=== PATIENT | female | born 1990 | race Caucasian/White ===

== ENCOUNTER → 2019-09-09 | Outpatient (CLI) | payer OTHER ==
[~2019-09-09] MED LIST: METHACHOLINE KIT (J7674) INH ONE
--- NOTE | 2019-09-09 08:14 | PFTRPT ---
Site: [facility], [address] [place], [address] ID: [id number] Name: RAMÓN GUNTER Visit Date: 09/09/2019 Second ID: [id number] Referring Doctor: Deon Menchaca D.O. Reviewing Doctor: Sukumar Herndon MD Sales Facilitator: Elizabeth NARVAEZ RRT Age: 28 : 1990 Sex: Female Race: Height: 64.00 Inches Weight: 185.00 Lbs BSA: 1.89 Order IDs: [id number] Requested Test(s): <RESP-PFT.METH CHAL> Diagnosis: R06.02 of albuterol for post bronchodilator. Review Status: Not Reviewed Pre-Bronch Post-Bronch Pred Actual %Pred Actual %Chng SPIROMETRY FVC (L) 3.78 3.99 105 3.78 -5 FEV1 (L) 3.21 3.35 104 3.20 -4 FEV1/FVC (%) 85 84 98 85 1 FEF 25% (L/sec) 5.73 7.30 127 6.99 -4 FEF 50% (L/sec) 4.54 4.48 98 3.75 -16 FEF 75% (L/sec) 1.93 1.64 84 1.20 -26 FEF 25-75% (L/sec) 3.50 3.66 104 3.09 -15 FEF Max (L/sec) 6.99 7.54 107 7.00 -7 FIVC (L) 3.00 3.65 21 FIF 50% (L/sec) 4.23 2.52 59 3.89 54 FIF Max (L/sec) 2.57 3.90 51 Expiratory Time (sec) 6.52 5.84 -10 Back Extrap Vol (L) 0.15 0.13 -14 Time To FEFmax (sec) 0.108 0.138 27
== END ==
LOC: M CARPUL 07:10
PROVIDERS: ATTEND Internal Medicine Pulmonary Disease
DX: R06.02 Shortness of breath (principal)
CPT/HCPCS: 94070; J7674

== ENCOUNTER → 2021-05-18 | Outpatient (CLI) | payer OTHER | LOC: M SLEEP HO 11:09 | PROVIDERS: ATTEND Physician Assistant | DX: G47.10 Hypersomnia, unspecified (principal) ==

== ENCOUNTER 2022-02-14 07:46 | Observation (INO) | payer OTHER ==
[~2022-02-14] VITALS: Ht 162.6 cm; Wt 98.0 kg
[2022-02-14] VITALS (7 sets, daily range): BP systolic 102–110; BP diastolic 60–70; O2SAT 93
[~2022-02-14 07:46] MED LIST changes: +FLUT22IN INH; +HEPARIN SOD (PORCINE) 5000UNITS/ML 1ML VIAL/SYRINGE SQ ONE; +LIDOCAINE 2% 100MG/5ML SDV (FOR ANES.) As Ordered ONE; -METHACHOLINE KIT (J7674) INH ONE; +PROA1AER2 IN; +VITMTA PO; +[UNRECOGNIZED DRUG - OTHER] PO; +ceFAZolin SOD 2 GM in IV 1 EA IV ONE
[2022-02-14] MEDS ORDERED: propofoL 200 MG/20 ML VIAL As Ordered ONE ×2 (08:33→13:27)
[2022-02-14] MEDS ORDERED: ROCURONIUM BROMIDE 50 MG/5 ML VIAL As Ordered ONE ×2 (08:33→11:10)
[2022-02-14] MEDS ORDERED: fentaNYL 250 MCG/5 ML INJECTION As Ordered ONE (08:34)
[2022-02-14] MEDS ORDERED: MIDAZOLAM INJ 2MG/2ML VIAL (J2250 PER 1MG) As Ordered ONE (08:34)
[2022-02-14] MEDS ORDERED: ONDANSETRON 4MG 2ML VIAL As Ordered ONE (08:34)
[2022-02-14] MEDS ORDERED: dexameTHASONE 4 MG/ML 1ML VIAL (J1100 PER 1MG) As Ordered ONE (08:34)
[2022-02-14] MEDS ORDERED: ACETAMINOPHEN 1000MG 100ML IV BTL (OFIRMEV) (J0131 PER 10MG) As Ordered ONE ×2 (09:41→12:31)
[2022-02-14] MEDS ORDERED: LIDOCAINE 1% MDV 20ML VIAL As Ordered ONE (10:30)
[2022-02-14] MEDS ORDERED: EPINEPHrine INJ 1 MG/ML 1ML AMP As Ordered ONE (10:30)
[2022-02-14] MEDS ORDERED: BUPIVACAINE LIPOSOME/PF 1.3% 20ML VIAL (13.3MG/ML)(EXPAREL) As Ordered ONE (10:31)
[2022-02-14] MEDS ORDERED: BUPIVACAINE HCL 0.25% 10ML VIAL As Ordered ONE (10:31)
[2022-02-14] MEDS ORDERED: GENTAMICIN SULF 80MG/2ML VIAL As Ordered ONE (10:31)
[2022-02-14] MEDS ORDERED: ePHEDrine SULFATE 25 MG/5 ML(5MG/ML) SYRINGE As Ordered ONE (11:48)
[2022-02-14] MEDS ORDERED: METOCLOPRAMIDE INJ 10MG/2ML VIAL (J2765 PER 1) As Ordered ONE (13:43)
[2022-02-14] MEDS ORDERED: SUGAMMADEX SODIUM 500 MG/5 ML VIAL (BRIDION) As Ordered ONE (14:10)
[2022-02-14] MEDS ORDERED: fentaNYL 100 MCG/2 ML INJECTION IV PRN (14:30)
[2022-02-14] MEDS ORDERED: HYDROMORPHONE HCL 0.5 MG/ 0.5 ML SYRINGE (J1170 PER 1) IV PRN (14:30)
[2022-02-14] MEDS ORDERED: LR 1,000 ML IV SCH (14:30)
[2022-02-14] MEDS ORDERED: ONDANSETRON 4MG 2ML VIAL IV PRN ×2 (14:30)
[2022-02-14] MEDS ORDERED: traMADol 50 MG TAB PO PRN (14:30)
[2022-02-14] MEDS ORDERED: PERCOCET 5MG/325MG TAB PO PRN (14:30)
[2022-02-14] MEDS: oxyCODONE 5MG TAB PO PRN ×2 (14:48→15:21)
[2022-02-14] MEDS: LR 1,000 ML IV SCH (15:47)
[2022-02-14] MEDS: ceFAZolin SOD 1 GM in D5W MINI-BAG PLUS 50 ML IV SCH (18:12)
[2022-02-14] MEDS: ACETAMINOPHEN TAB 650MG DOSE (2X325MG) PO PRN (20:08)
[2022-02-14] MEDS ORDERED: FLUT50SP33 (21:27)
[2022-02-14] MEDS ORDERED: VITA100093 PO (21:27)
[2022-02-14] MEDS ORDERED: DIGETAB4 PO (21:27)
[2022-02-14] MEDS ORDERED: ALBU8.5H INH (21:27)
[2022-02-14] MEDS ORDERED: HOME MED LIST COMPLETE! XX SCH (21:30)
[2022-02-15 00:33] VITALS: BP 101/63
[2022-02-15] MEDS: LR 1,000 ML IV SCH (01:37)
[2022-02-15] MEDS: ceFAZolin SOD 1 GM in D5W MINI-BAG PLUS 50 ML IV SCH (02:34)
[2022-02-15 03:58] VITALS: BP 125/71
[2022-02-15] MEDS: ACETAMINOPHEN TAB 650MG DOSE (2X325MG) PO PRN (08:25)
[2022-02-15] MEDS ORDERED: TRAM50TA2 PO (08:33)
[2022-02-15 09:00] VITALS: O2SAT 96
[2022-02-15 10:00] VITALS: BP 114/66
== END 2022-02-15 13:10 | disposition home or self-care (01) ==
LOC: M SDC 07:46 → M MS5PR 13:30 → M SDC 14:29 → M MS5PR 14:30
PROVIDERS: ADMIT Plastic Surgery Surgery of the Hand; ATTEND Plastic Surgery Surgery of the Hand
DX: N62 Hypertrophy of breast (principal); N64.81 Ptosis of breast; J45.909 Unspecified asthma, uncomplicated; M54.6 Pain in thoracic spine; Z79.52 Long term (current) use of systemic steroids
CPT/HCPCS: 19318; 81025; 88305; 96365; 96366; 96376; C9290; J0131; J0690; J1100; J1580; J1644; J2250; J2405; J2765; J3010